=== PATIENT | female | born 2000 | race Caucasian/White ===

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

== ENCOUNTER 2019-05-10 06:19 | Emergency (ER) | payer MEDICAID ==
[~2019-05-10] VITALS: Ht 165.1 cm; Wt 61.7 kg
[2019-05-10 06:25] VITALS: BP_SYST 121
[2019-05-10 07:00] LABS: BILIRUBIN,URINE NEGATIVE (NEGATIVE); BLOOD, URINE 3+ (NEGATIVE); CLARITY/URINE SL HAZY (CLEAR); COLOR,URINE YELLOW (YELLOW); GLUCOSE,URINE NEGATIVE (NEGATIVE); KETONES,URINE NEGATIVE (NEGATIVE); LEUKOCYTE ESTERASE ,URINE 1+ (NEGATIVE); NITRITE, URINE NEGATIVE (NEGATIVE); PROTEIN URINE NEGATIVE (NEGATIVE); UROBILINOGEN,URINE 0.2 (0.2-1.0)
[2019-05-10] MEDS ORDERED: BACITRACIN 1 GM OINT TP ONE (07:02)
[2019-05-10 07:16] LABS: BACTERIA,URINE FEW /HPF (None Seen)
[2019-05-10 07:47] LABS: BASOPHILS % (AUTO) 0.3 % (0.0-2.0); EOSINOPHILS # (AUTO) 0.2 K/uL (0.0-0.4); EOSINOPHILS % (AUTO) 3.6 % (0.0-4.0); HEMATOCRIT 44.1 % (36-48); HEMOGLOBIN 14.8 g/dL (12.0-16.0); LYMPHOCYTES # (AUTO) 2.5 K/uL (1.0-5.5); LYMPHOCYTES % (AUTO) 41.5 % (20.5-51.5); MEAN CORPUSCULAR HEMOGLOBIN 31 pg (27-31); MEAN CORPUSCULAR HGB CONC 34 % (32-36); MEAN CORPUSCULAR VOLUME 93 fL (79.0-98.0); MONOCYTES # (AUTO) 0.4 K/uL (0.0-1.0); MONOCYTES % (AUTO) 6.6 % (1.7-9.3); NEUTROPHILS # (AUTO) 2.8 K/uL (1.8-7.7); PLATELET COUNT (AUTO) 238 K/uL (130-430); RED BLOOD CELL COUNT(AUTO) 4.75 MIL/uL (4.2-6.2); RED CELL DISTRIBUTION WIDTH 12.4 % (9.0-15.0); WHITE BLOOD COUNT (AUTO) 5.9 K/uL (4.5-11.0)
[2019-05-10 08:11] LABS: CALCIUM 9.2 mg/dL (8.4-11.0); CREATININE 0.62 mg/dL (0.55-1.30); POTASSIUM 3.5 mmol/L (3.5-5.1)
[2019-05-10 08:14] LABS: PROTHROMBIN TIME 10.4 SECS (9.5-12.5)
[2019-05-10 08:15] LABS: ALBUMIN 4.3 g/dL (3.4-4.8); TOTAL BILIRUBIN 0.3 mg/dL (0.0-1.0)
[2019-05-10 09:10] VITALS: BP_SYST 143
== END 2019-05-10 09:10 | disposition home or self-care (01) ==
LOC: SED 06:19
DX: N83.201 Unspecified ovarian cyst, right side (principal)
CPT/HCPCS: 36415; 80053; 81000-TC; 81025; 83690-TC; 85025; 85610-TC; 87086; 99284

== ENCOUNTER 2019-07-18 21:10 | Emergency (ER) | payer MEDICAID ==
[~2019-07-18] VITALS: Ht 165.1 cm; Wt 63.5 kg
[2019-07-18 21:15] VITALS: BP_SYST 122
--- NOTE | 2019-07-18 22:00 | NUR ---
Called pt name to be place in room,no answer.
--- NOTE | 2019-07-18 22:05 | NUR ---
Called pt name to be place in room,no answer.
--- NOTE | 2019-07-18 22:14 | NUR ---
Patient left without being seen.
== END 2019-07-18 22:14 | disposition left against medical advice (07) ==
LOC: SED 21:10
DX: N64.4 Mastodynia (principal); R07.89 Other chest pain; Z53.21 Procedure and treatment not carried out due to patient leaving prior to being seen by health care provider

== ENCOUNTER 2022-09-29 21:14 | Emergency (ER) | payer MEDICAID ==
[~2022-09-29] VITALS: Ht 165.1 cm; Wt 70.3 kg
[2022-09-29 21:23] VITALS: BP_SYST 118
[2022-09-29 22:19] LABS: BASOPHILS % (AUTO) 0.3 % (0.0-2.0); EOSINOPHILS # (AUTO) 0.8 K/uL (0.0-0.4); EOSINOPHILS % (AUTO) 12.6 % (0.0-4.0); HEMATOCRIT 38.4 % (36-48); HEMOGLOBIN 12.8 g/dL (12.0-16.0); LYMPHOCYTES # (AUTO) 2.7 K/uL (1.0-5.5); LYMPHOCYTES % (AUTO) 42.8 % (20.5-51.5); MEAN CORPUSCULAR HEMOGLOBIN 29 pg (27-31); MEAN CORPUSCULAR HGB CONC 33 % (32-36); MEAN CORPUSCULAR VOLUME 87 fL (79.0-98.0); MONOCYTES # (AUTO) 0.5 K/uL (0.0-1.0); MONOCYTES % (AUTO) 7.9 % (1.7-9.3); NEUTROPHILS # (AUTO) 2.3 K/uL (1.8-7.7); NEUTROPHILS % (AUTO) 36.4 % (40.0-70.0); PLATELET COUNT (AUTO) 232 K/uL (130-430); RED BLOOD CELL COUNT(AUTO) 4.39 MIL/uL (4.2-6.2); RED CELL DISTRIBUTION WIDTH 14.4 % (9.0-15.0); WHITE BLOOD COUNT (AUTO) 6.4 K/uL (4.8-10.8)
[2022-09-29 22:53] LABS: BILIRUBIN,URINE NEGATIVE (NEGATIVE); BLOOD, URINE 2+ (NEGATIVE); COLOR,URINE YELLOW (YELLOW); GLUCOSE,URINE NEGATIVE (NEGATIVE); KETONES,URINE NEGATIVE (NEGATIVE); LEUKOCYTE ESTERASE ,URINE 1+ (NEGATIVE); NITRITE, URINE NEGATIVE (NEGATIVE); PH,URINE 6.5 (5.0-8.0); PROTEIN URINE NEGATIVE (NEGATIVE); UROBILINOGEN,URINE 0.2 (0.2-1.0)
[2022-09-29 22:55] LABS: CLARITY/URINE HAZY (CLEAR)
[2022-09-29 23:02] LABS: BACTERIA,URINE FEW /HPF (None Seen); WBC,URINE 0-3 /HPF (0-3)
[2022-09-29 23:03] LABS: MUCUS,URINE 1+ /LPF (None Seen)
[2022-09-29 23:10] LABS: CALCIUM 9.6 mg/dL (8.4-11.0)
[2022-09-29 23:11] LABS: CREATININE 0.65 mg/dL (0.55-1.30); TOTAL BILIRUBIN 0.2 mg/dL (0.0-1.0)
[2022-09-30 00:27] VITALS: BP_SYST 119
== END 2022-09-30 00:27 | disposition home or self-care (01) ==
LOC: SED 21:14
DX: R10.31 Right lower quadrant pain (principal)
CPT/HCPCS: 36415; 74018; 80053; 81000; 81025; 83690; 85025; 99284

== ENCOUNTER 2022-12-27 01:28 | Emergency (ER) | payer MEDICAID ==
[~2022-12-27] VITALS: Ht 165.1 cm; Wt 68.0 kg
[2022-12-27 01:53] VITALS: BP_SYST 100
--- NOTE | 2022-12-27 01:59 | NUR ---
Patient triaged and placed in waiting room. VSS and patient appears in no acute distress at this time. Accompanied by self, awaiting available bed, and MD notified of need for MSE.
--- NOTE | 2022-12-27 03:36 | NUR ---
ER examining patient in the triage room.
--- NOTE | 2022-12-27 03:40 | NUR ---
Patient to ER bed 3 to gown for evaluation. Side rails up. Report given to Toi BARFIELD by Triage nurse Veronika..
--- NOTE | 2022-12-27 03:50 | NUR ---
ER MD Fritz performing pevic exam.
--- NOTE | 2022-12-27 04:00 | NUR ---
Patient's pelvic sample taken to lab.
--- NOTE | 2022-12-27 06:07 | NUR ---
Patient given written and verbal discharge instructions and verbalizes understanding. ER MD discussed with patient the results and treatment provided. Patient in stable condition. ID arm band removed. NO Rx of given. Patient educated on pain management and to follow up with PMD. Pain Scale 3/10. Opportunity for questions provided and answered. Medication side effect fact sheet provided.
[2022-12-27 06:09] VITALS: BP_SYST 110
== END 2022-12-27 06:09 | disposition home or self-care (01) ==
LOC: SED 01:28
DX: R10.32 Left lower quadrant pain (principal); R10.31 Right lower quadrant pain; Z79.899 Other long term (current) drug therapy
CPT/HCPCS: 81002; 81025; 87210-TC; 99284